=== PATIENT | male | born 1950 | race Caucasian/White ===

== ENCOUNTER → 2017-11-05 11:25 | Outpatient (CLI) | payer MEDICARE, OTHER, SELFPAY ==
--- NOTE | 2017-11-05 | DI.MRI.S_ITS ---
PROCEDURE: MR CERVICAL SPINE WO CON INDICATIONS: NECK PAIN TECHNIQUE: Noncontrast sagittal T1 spin echo and T2 fast spin echo, sagittal STIR, foraminal oblique sagittal T2 fast spin echo, and axial gradient echo or T2 fast spin echo through the cervical spine. COMPARISON: [facility], CR, CERVICAL SPINE 2 OR 3 VIEWS, 05/05/2011, 7:56. [facility], CT, HEAD AND NECK ANGIO, 04/02/2016, 21:20. [facility], MR, C-SPINE WITHOUT CONTRAST, 05/15/2011, 9:12. FINDINGS: Image quality: Diagnostic, with note made of motion artifact. Alignment and Curvature: There is normal bony alignment. Bone Marrow: Marrow demonstrates normal overall signal. Spinal Cord: Visualized spinal cord has normal size and signal. No cerebellar tonsillar herniation. Paraspinous Soft Tissues: No paravertebral masses. Prevertebral soft tissues are normal in thickness. C2-C3: The disc height is well-preserved. Loss of disc signal is seen at this level. A mild degree of generalized disc osteophyte complex is seen. There is moderate to prominent left-sided and mild right-sided facet hypertrophy seen. There is at least moderate left-sided and no right-sided neural foraminal narrowing. Mild central canal narrowing is seen. These imaging findings are mildly progressed compared to the prior study. C3-C4: The disc height is well-preserved. Loss of disc signal is seen at this level. A mild degree of generalized disc osteophyte complex is seen. Mild to moderate facet hypertrophy is seen. There is moderate right-sided and moderate to severe left-sided neural foraminal narrowing seen. Mild central canal narrowing is seen. These degenerative changes have progressed compared to the prior. C4-C5: Mild loss of disc height is seen. Loss of disc signal is seen. A mild degree of generalized disc osteophyte complex is seen. Mild to moderate facet hypertrophy is seen. There is moderate to severe right-sided and mild to moderate left-sided neural foraminal narrowing seen. Mild central canal narrowing is seen. These degenerative changes are more prominent than in 2012. C5-C6: Moderate loss of disc height is seen. Loss of disc signal is seen. Moderate generalized disc osteophyte complex is seen. There is a superimposed central disc osteophyte protrusion. There is moderate to severe bilateral neural foraminal narrowing seen, left greater than right. At least moderate central canal narrowing is seen, with associated mass effect upon the ventral spinal cord. These imaging findings are mildly progressed compared to the prior study. C6-C7: The disc height is well-preserved. Loss of disc signal is seen at this level. A mild degree of generalized disc osteophyte complex is seen. Mild facet joint hypertrophy is seen. There is mild right-sided and no significant left-sided neural foraminal narrowing seen. No significant central canal narrowing is seen. When comparison is made with the prior examination, these findings are similar. C7-T1: The disc height is relatively well-preserved. A mild degree of generalized disc osteophyte complex is seen. No significant neural foraminal or central canal narrowing are seen. When comparison is made with the prior examination, these findings are similar. IMPRESSION: Multiple levels of cervical spine degenerative change are seen, which are overall most prominent at the C5-C6 level. The degenerative changes have progressed compared to 2012. Dictated by: Michael Delatorre M.D. on 11/05/2017 at 12:28 Approved by: Michael Delatorre M.D. on 11/05/2017 at 12:34
== END ==
PROVIDERS: PCP Family Medicine; Visit Provider Family Medicine
DX: M50.122 Cervical disc disorder at C5-C6 level with radiculopathy (principal)
CPT/HCPCS: 72141

== ENCOUNTER → 2018-02-07 09:32 | Outpatient (CLI) | payer MEDICARE, OTHER, SELFPAY ==
--- NOTE | 2018-02-07 | DI.MRI.S_ITS ---
PROCEDURE: MR HEAD/BRAIN WO CON INDICATIONS: OTHER HEADACHE SYNDROME TECHNIQUE: Noncontrast axial T1 spin echo, axial T2 fast spin echo, sagittal and axial FLAIR, coronal T2 fast spin echo, axial gradient echo, axial diffusion and ADC through the brain. COMPARISON: None. FINDINGS: Image quality: Excellent. CSF Spaces: Basal cisterns are patent. No extra-axial fluid collections. Ventricles are normal in size and shape. Brain: No intracranial masses or hemorrhage. Steinberg/white matter interface is normal. Brainstem appears normal. Diffusion-weighted images demonstrate no acute ischemic insult. No chronic ischemic insults. Normal intravascular flow voids are present. Skull and face: Calvarium has normal marrow signal. Orbits appear normal. Sinuses: Sinuses and mastoids are clear except for a slight degree of mucosal thickening adjacent to the right middle nasal turbinate where solo bullosa appears present. There also is mild lobulated mucosal thickening within the inferior right maxillary sinus without air-fluid level.. IMPRESSION: The brain parenchyma appears normal. No acute sinusitis is seen. Mild mucosal thickening involving the ethmoid air cells and nasal airway/inferior right maxillary sinus, without air fluid level. 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 A definite source is a persistent headaches is not found. Dictated by: Ethan Gordon M.D. on 02/07/2018 at 11:12 Approved by: Ethan Gordon M.D. on 02/07/2018 at 11:17
== END ==
PROVIDERS: PCP Family Medicine
DX: G44.89 Other headache syndrome (principal); J32.0 Chronic maxillary sinusitis; J32.2 Chronic ethmoidal sinusitis; J34.89 Other specified disorders of nose and nasal sinuses
CPT/HCPCS: 70551

== ENCOUNTER → 2021-12-21 08:59 | Outpatient (CLI) | payer MEDICARE, OTHER, SELFPAY | PROVIDERS: PCP Family Medicine; Referring Provider Family Medicine; Visit Provider Family Medicine | DX: M54.17 Radiculopathy, lumbosacral region (principal); Z53.20 Procedure and treatment not carried out because of patient's decision for unspecified reasons ==